=== PATIENT | male | born 1965 | race Caucasian/White ===

== ENCOUNTER 2019-10-15 | Emergency (ER) | payer SELFPAY | END 2019-10-15 16:00 | disposition home or self-care (01) | DX: Z20.2 Contact with and (suspected) exposure to infections with a predominantly sexual mode of transmission (principal); F17.200 Nicotine dependence, unspecified, uncomplicated | CPT/HCPCS: J0696; Q0144 ==

== ENCOUNTER 2020-05-11 03:15 | Emergency (ER) | payer SELFPAY ==
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
[2020-05-11] MEDS ORDERED: KETOROLAC TROMETHAMINE INJ 30 MG/ML VIAL IM ONE (04:04)
[2020-05-11 04:06] VITALS: BP 157/108; TEMP 97.2; O2SAT 99
[2020-05-11] MEDS ORDERED: CYCLOBENZAPRINE TAB (ER DISP) 10 MG TAB PO ONE (04:10)
[2020-05-11] MEDS ORDERED: CYCLOBENZAPRINE TAB (ER DISP) 10 MG TAB ONE (04:12)
== END 2020-05-11 04:18 | disposition home or self-care (01) ==
LOC: ER 03:15
DX: S13.9XXA Sprain of joints and ligaments of unspecified parts of neck, initial encounter (principal); S06.0X0A Concussion without loss of consciousness, initial encounter; Z87.891 Personal history of nicotine dependence; V49.40XA Driver injured in collision with unspecified motor vehicles in traffic accident, initial encounter; Y92.410 Unspecified street and highway as the place of occurrence of the external cause
CPT/HCPCS: 70450; 72125; J1885